=== PATIENT | male | born 1950 | race Caucasian/White ===

== ENCOUNTER → 2018-04-08 | Outpatient (CLI) | payer MEDICARE ==
--- NOTE | 2018-04-08 14:21 | RADIOLOGY REPORT (SQ) ---
EXAM DESCRIPTION: CAROTID DOPPLER COMPLETED DATE/TIME: 04/08/2018 2:01 pm REASON FOR STUDY: BILATERAL RETINAL HEMORRHAGE H35.63 RETINAL HEMORRHAGE, BILATERAL COMPARISON: None. TECHNIQUE: Grayscale ultrasound, Doppler velocity and spectra, and color Doppler images acquired of the extra-cranial carotid and vertebral arteries. Images stored on PACS. LIMITATIONS: None. FINDINGS: RIGHT CAROTID CCA Velocities: Within normal limits. Right common carotid artery peak systolic velocity 0.94 m/sec. Diffuse intimal thickening ICA Velocities Peak systolic 2.1 m/s. End diastolic 1.3 m/s. Proximal ICA/CCA peak systolic ratio 2.7. Mixed calcific and noncalcific plaque is present at the right carotid bifurcation causing 70 to 99% s tenosis. Turbulent flow. Calcific irregular plaque narrows the right external carotid artery with peak systolic velocity 1.95 m/sec, end-diastolic velocity 0.34 m/sec with 50 to 69% narrowing right external carotid artery. LEFT CAROTID CCA Velocities: Within normal limits. Left common carotid artery peak systolic velocity 0.76 m/sec. Diffuse intimal thickening. ICA Velocities Peak systolic 1.25 m/s. End diastolic 0.35 m/s. Proximal ICA/CCA peak systolic ratio 2.0. Mixed calcific and noncalcific plaque is present at the left carotid bifurcation causing about 50% di ameter narrowing by velocity criteria. Turbulent flow. Calcific irregular plaque narrows the left external carotid artery, with peak systolic velocity 4.3 m /sec, end-diastolic velocity 1.3 m/sec with 70 to 99% external carotid artery stenosis. VERTEBRAL ARTERIES: Antegrade flow. Normal waveforms. SUBCLAVIAN ARTERIES: Not evaluated OTHER: Findings were discussed with , 1400 hours 04/08/2018 IMPRESSION: 70 to 99% stenosis right ICA the carotid bifurcation 50% stenosis proximal left ICA at the carotid bifurcation COMMENT: Quality ID #[id number]: Velocity criteria are extrapolated from the diameter data as defined by t he Society of Radiologists in Ultrasound Consensus Conference. Radiology 2003: 229; 340-346. TECHNICAL DOCUMENTATION: JOB ID: [id number] [employer]- All Rights Reserved Reading location - IP/workstation name: [email or web address]-
== END ==
LOC: SP 14:38
PROVIDERS: ATTEND Ophthalmology
DX: H35.63 Retinal hemorrhage, bilateral (principal); I65.23 Occlusion and stenosis of bilateral carotid arteries
CPT/HCPCS: 93880